=== PATIENT | male | born 1995 ===

== ENCOUNTER 2018-02-12 12:21 | Emergency (ER) | payer OTHER ==
[2018-02-12] MEDS ORDERED: ONDANSETRON 4 MG/2 ML VIAL ONE (12:34)
[2018-02-12 12:59] LABS: Absolute Lymphocytes (CBC) 1.5 K/uL (0.7-4.9); Absolute Monocytes 0.5 K/uL (0.1-1.3); Absolute Neutrophil 4.3 K/uL (1.8-8.0); Basophils % 0.9 % (0-1.3); Eosinophils % 1.5 % (0-4.4); Hematocrit 49.3 % (39.6-49.0); Lymphocytes % 23.2 % (15.3-44.8); MCH 30.2 pg (27.0-35.0); MCV 90.6 fL (80-100); MPV 9.5 fL (7.6-11.3); Monocytes % 7.6 % (3.3-12.3); RBC Red Blood Cell Count 5.44 M/uL (4.33-5.43)
[2018-02-12 13:21] LABS: Bicarbonate 25 mEq/L (21-31); Glucose Level 100 mg/dL (65-120); Lipase 23 U/L (22-51); Potassium 3.9 mEq/L (3.6-5.0); Sodium Level 138 mEq/L (135-145)
[2018-02-12 13:27] LABS: ALT/SGPT 35 IU/L (10-60); AST/SGOT 33 IU/L (10-42); Albumin 4.6 g/dL (3.2-5.5); Alkaline Phosphatase 61 IU/L (42-121); BUN Blood Urea Nitrogen 10 mg/dL (6-20); Bilirubin Direct 0.1 mg/dL (0-0.2); Bilirubin Total 0.6 mg/dL (0.3-1.2)
--- NOTE | 2018-02-12 14:10 | RAD REPORT ---
EXAM DESCRIPTION: CTAbdomen Pelvis W Contrast - 02/12/2018 2:04 pm CLINICAL HISTORY: Abdominal pain. COMPARISON: 12/27/2017 TECHNIQUE: Biphasic CT imaging of the abdomen and pelvis was performed with 100 ml non-ionic IV cont rast. All CT scans are performed using dose optimization technique as appropriate and may include automated exposure control or mA/KV adjustment according to patient size. FINDINGS: The lung bases are clear. The liver, spleen, pancreas, adrenal glands and kidneys are within normal limits. No bowel obstruction, free air, free fluid or abscess. The appendix is normal. No evidence of signi ficant lymphadenopathy. No suspicious bony findings. IMPRESSION: No acute intra-abdominal or pelvic finding.
--- NOTE | 2018-02-12 14:44 | ER ---
Nurse's Notes [facility] Name: Silviano Light Age: 22 yrs Sex: Male : 1995 Arrival Date: 02/12/2018 Time: 12:22 Bed 18 Private MD: Diagnosis: Lower abdominal pain, unspecified Presentation: 02/12 12:29 Presenting complaint: Patient states: my tummy is aching since yesterday, its more of hj the R lower abd; denies nausea and vomiting, denies diarrhea, denies fever and chills;. Transition of care: patient was not received from another setting of care. Onset of symptoms was February 12, 2018. Initial Sepsis Screen: Does the patient meet any 2 criteria? No. Patient's initial sepsis screen is negative. Does the patient have a suspected source of infection? No. Patient's initial sepsis screen is negative. Care prior to arrival: None. 12:29 Method Of Arrival: Ambulatory 12:29 Acuity: CARLOS 3 hj Triage Assessment: 12:32 General: Appears in no apparent distress. uncomfortable, Behavior is calm, cooperative, hj appropriate for age. Pain: Complains of pain in right lower quadrant. EENT: No signs and/or symptoms were reported regarding the EENT system. Neuro: Level of Consciousness is awake, alert, obeys commands, Oriented to person, place, time, situation, Appropriate for age. Cardiovascular: Capillary refill < 3 seconds Patient's skin is warm and dry. Respiratory: Airway is patent Respiratory effort is even, unlabored, Respiratory pattern is regular, symmetrical. GI: Abdomen is flat, non-distended, Bowel sounds present X 4 quads. Reports lower abdominal pain. : No signs and/or symptoms were reported regarding the genitourinary system. Derm: No signs and/or symptoms reported regarding the dermatologic system. Musculoskeletal: No signs and/or symptoms reported regarding the musculoskeletal system. Historical: - Allergies: 12:32 NKA; hj - Home Meds: 12:32 None [Active]; hj - PMHx: 12:32 None; hj - PSHx: 12:32 unknown surgery; hj - Immunization history:: Adult Immunizations up to date. - Social history:: Smoking status: Patient/guardian denies using tobacco, Patient/guardian denies using alcohol. - Family history:: not pertinent. - Hospitalizations: : No recent hospitalization is reported. Screenin:33 Abuse screen: Denies threats or abuse. Denies injuries from another. Nutritional hj screening: No deficits noted. Tuberculosis screening: No symptoms or risk factors identified. Fall Risk None identified. Assessment: 12:34 Reassessment: see triage assessment;. hj 13:36 Reassessment: Patient and/or family updated on plan of care and expected duration. Pain hj level reassessed. Patient is alert, oriented x 3, equal unlabored respirations, skin warm/dry/pink. 14:47 Reassessment: Patient and/or family updated on plan of care and expected duration. Pain hj level reassessed. Patient is alert, oriented x 3, equal unlabored respirations, skin warm/dry/pink. for D/C;. Vital Signs: 12:34 BP 124 / 86; Pulse 96; Resp 18; Temp 98.1(TE); Pulse Ox 100% on R/A; Weight 70.31 kg; hj Height 5 ft. 5 in. (165.10 cm); Pain 8/10; 13:38 BP 123 / 84; Pulse 83; Resp 16; Pulse Ox 98% on R/A; mh5 14:56 BP 125 / 83; Pulse 85; Resp 18; Pulse Ox 100% on R/A; hj 12:34 Body Mass Index 25.79 (70.31 kg, 165.10 cm) hj ED Course: 12:22 Patient arrived in ED. iw 12:23 Adarsh Ortiz MD is Attending Physician. rn 12:27 Bernardo Steel, IVY is Primary Nurse. hj 12:30 Triage completed. hj 12:33 Arm band placed on right wrist. hj 12:33 Patient has correct armband on for positive identification. Bed in low position. Call hj light in reach. Side rails up X2. Security at bedside. 13:50 Inserted saline lock: 22 gauge in left forearm, using aseptic technique. hj 13:59 Urine collected: clean catch specimen, clear. mh5 13:59 Urine Microscopic Only Sent. mh5 14:05 CT Abd/Pelvis - W/Contrast In Process Unspecified. EDMS 14:54 No provider procedures requiring assistance completed. Patient did not have IV access hj during this emergency room visit. Administered Medications: 11:40 Drug: Zofran 4 mg Route: IVP; Site: right hand; mg2 12:50 Follow up: Response: No adverse reaction mg2 Outcome: 14:44 Discharge ordered by . ivy 14:54 Discharged to home ambulatory, with correctional officers; raya 14:54 Condition: stable 14:54 Discharge instructions given to patient, catapult and arresting gear officer; Instructed on discharge instructions, follow up and referral plans. Demonstrated understanding of instructions, follow-up care. 14:55 Patient left the ED. raya Signatures: Dispatcher [employer] EDCathy Obrien RN RN iw Nieto, Roman, MD MD rn Joaquin, Henry, RN RN hj Martinez, Maria [facility] Delroy Feliciano RN RN mg2
--- NOTE | 2018-02-12 14:45 | EDPHYS ---
Physician Documentation [facility] Name: Silviano Light Age: 22 yrs Sex: Male : 1995 Arrival Date: 02/12/2018 Time: 12:22 Bed 18 Private MD: ED Physician Adarsh Ortiz HPI: 02/12 12:43 This 22 yrs old Male presents to ER via Ambulatory with complaints of abd pain.rn 12:43 The patient presents with abdominal pain right lower quadrant. Onset: The rn symptoms/episode began/occurred yesterday. The symptoms do not radiate. Associated signs and symptoms: Pertinent positives: nausea and vomiting, constipation, Pertinent negatives: diarrhea, dysuria, fever, testicular pain, vomiting, vomiting blood. The symptoms are described as crampy, sharp. Modifying factors: The symptoms are alleviated by nothing, the symptoms are aggravated by movement, touching the area. Severity of pain: At its worst the pain was moderate in the emergency department the pain is unchanged. The patient has experienced a previous episode. The patient has not recently seen a physician. Historical: - Allergies: 12:32 NKA; hj - Home Meds: 12:32 None [Active]; hj - PMHx: 12:32 None; hj - PSHx: 12:32 unknown surgery; hj - Immunization history:: Adult Immunizations up to date. - Social history:: Smoking status: Patient/guardian denies using tobacco, Patient/guardian denies using alcohol. - Family history:: not pertinent. - Hospitalizations: : No recent hospitalization is reported. ROS: 12:43 Constitutional: Negative for fever, chills, and weight loss, Eyes: Negative for injury, rn pain, redness, and discharge, Neck: Negative for injury, pain, and swelling, Cardiovascular: Negative for chest pain, palpitations, and edema, Respiratory: Negative for shortness of breath, cough, wheezing, and pleuritic chest pain, Abdomen/GI: + abd pain/nausea/vomiting/constipation Back: Negative for injury and pain, MS/Extremity: Negative for injury and deformity, Skin: Negative for injury, rash, and discoloration, Neuro: Negative for headache, weakness, numbness, tingling, and seizure. Exam: 12:43 Constitutional: This is a well developed, well nourished patient who is awake, alert, rn and in no acute distress. Head/Face: Normocephalic, atraumatic. Eyes: Pupils equal round and reactive to light, extra-ocular motions intact. Lids and lashes normal. Conjunctiva and sclera are non-icteric and not injected. Cornea within normal limits. Periorbital areas with no swelling, redness, or edema. Neck: Trachea midline, no thyromegaly or masses palpated, and no cervical lymphadenopathy. Supple, full range of motion without nuchal rigidity, or vertebral point tenderness. No Meningismus. Cardiovascular: Regular rate and rhythm with a normal S1 and S2. No gallops, murmurs, or rubs. Normal PMI, no JVD. No pulse deficits. Respiratory: Lungs have equal breath sounds bilaterally, clear to auscultation and percussion. No rales, rhonchi or wheezes noted. No increased work of breathing, no retractions or nasal flaring. Abdomen/GI: soft, + tender bilateral lower quadrants, R>L, no peritoneal signs. MS/ Extremity: Pulses equal, no cyanosis. Neurovascular intact. Full, normal range of motion. Equal circumference. Neuro: Awake and alert, GCS 15, oriented to person, place, time, and situation. Cranial nerves II-XII grossly intact. Motor strength 5/5 in all extremities. Sensory grossly intact. Cerebellar exam normal. Normal gait. Vital Signs: 12:34 BP 124 / 86; Pulse 96; Resp 18; Temp 98.1(TE); Pulse Ox 100% on R/A; Weight 70.31 kg; hj Height 5 ft. 5 in. (165.10 cm); Pain 8/10; 13:38 BP 123 / 84; Pulse 83; Resp 16; Pulse Ox 98% on R/A; mh5 14:56 BP 125 / 83; Pulse 85; Resp 18; Pulse Ox 100% on R/A; hj 12:34 Body Mass Index 25.79 (70.31 kg, 165.10 cm) MDM: 12:23 Patient medically screened. rn 14:43 Differential diagnosis: appendicitis, diverticulitis, gastroesophageal reflux disease, rn non-specific abd pain, Ureterolithiasis, urinary tract infection. Data reviewed: vital signs, nurses notes, lab test result(s), radiologic studies, CT scan, and as a result, I will discharge patient. Counseling: I had a detailed discussion with the patient and/or guardian regarding: the historical points, exam findings, and any diagnostic results supporting the discharge/admit diagnosis, lab results, radiology results, the need for outpatient follow up, to return to the emergency department if symptoms worsen or persist or if there are any questions or concerns that arise at home. Special discussion: Based on the patient's Hx, exam, and Dx evaluation, there is no indication for emergent surgery or inpatient Tx. It is understood by the patient/guardian that if the Sx's persist or worsen they need to return immediately for re-evaluation. I discussed with the patient/guardian in detail that at this point there is no indication for admission to the hospital. It is understood, however, that if the symptoms persist or worsen the patient needs to return immediately for re-evaluation. 02/12 12:27 Order name: Basic Metabolic Panel; Complete Time: 13:39 02/12 12:27 Order name: CBC with Diff; Complete Time: 13:39 02/12 12:27 Order name: Creatinine for Radiology; Complete Time: 13:39 02/12 12:27 Order name: Hepatic Function; Complete Time: 13:39 02/12 12:27 Order name: Lipase; Complete Time: 13:39 02/12 12:27 Order name: Urine Microscopic Only 02/12 12:27 Order name: IV Saline Lock; Complete Time: 12:46 02/12 12:27 Order name: Labs collected and sent; Complete Time: 12:46 02/12 12:27 Order name: Urine Dipstick-Ancillary (obtain specimen); Complete Time: 13:48 02/12 12:27 Order name: CT Abd/Pelvis - W/Contrast; Complete Time: 14:43 02/12 14:33 Order name: Urine Dipstick--Ancillary (enter results) mw2 Administered Medications: 11:40 Drug: Zofran 4 mg Route: IVP; Site: right hand; mg2 12:50 Follow up: Response: No adverse reaction mg2 Disposition: 02/12/18 14:44 Discharged to Home. Impression: Lower abdominal pain, unspecified. - Condition is Stable. - Discharge Instructions: Abdominal Pain, Adult. - Medication Reconciliation Form, Thank You Letter, Antibiotic Education, Prescription Opioid Use form. - Follow up: Private Physician; When: As needed; Reason: Recheck today's complaints, Re-evaluation by your physician. - Problem is new. - Symptoms have improved. Signatures: Dispatcher [employer] EDAdarsh Garcia MD MD rn Joaquin, Henry, RN RN hj Gardose, Michele, RN RN mg2
[2018-02-12 14:51] LABS: Urine Blood NEGATIVE (NEG); Urine Glucose NEGATIVE (NEG); Urine Protein TRACE (NEG); Urine Specific Gravity 1.015 (1.005-1.030); Urine pH 8.5 (5.0-7.0)
[2018-02-12 15:19] LABS: Urine Bacteria <20 /HPF (NONE SEEN); Urine RBC <5 /HPF (NONE SEEN)
[2018-02-12 15:20] LABS: Urine Culture Reflex Order NOT NEEDED; Urine Mucus 1+ /HPF (NONE SEEN)
== END 2018-02-12 14:55 | disposition home or self-care (01) ==
LOC: ER 12:21
DX: R10.31 Right lower quadrant pain (principal); R11.2 Nausea with vomiting, unspecified
CPT/HCPCS: 36415; 74177; 80048; 80076; 81003; 81015; 83690; 85025; 96374; 99284; J2405; Q9967